=== PATIENT | male | born 1950 | race Caucasian/White ===

== ENCOUNTER 2018-09-23 14:15 | Inpatient (IN) | payer MEDICARE, OTHER ==
[~2018-09-23 14:15] MED LIST: AMIO200T5 PO; ATOR10TA84 PO; BISO5TAB26 PO; BUME1TAB17 PO; LEVO50 PO; MEXI150 PO; OMEP-99 PO; SERT100T12 PO
[2018-09-23 16:03] VITALS: BP 106/68
[2018-09-23] MEDS ORDERED: BISACODYL 10 MG RECTAL RECTAL SUPPOSITORY PR PRN (16:30)
[2018-09-23] MEDS ORDERED: MAGNESIUM HYDROXIDE SUSPENSION 30 ML UDCUP PO PRN (16:30)
[2018-09-23] MEDS ORDERED: ACETAMINOPHEN 325 MG TABLET PO PRN (16:30)
[2018-09-23] MEDS ORDERED: ZOLPIDEM TARTRATE 5 MG TABLET PO PRN (16:30)
[2018-09-23] MEDS ORDERED: HYDROCODONE/ACETAMINOPHEN 5-325 MG TABLET PO PRN (16:30)
[2018-09-23] MEDS ORDERED: ONDANSETRON HCL 4 MG/2 ML VIAL IVP PRN (16:30)
[2018-09-23] MEDS ORDERED: MORPHINE SULFATE 2 MG/ML SYRINGE IVP PRN (16:30)
[2018-09-23] MEDS ORDERED: CefTRIAXone 1 GM/DEXTROSE 50 ML IV SCH (17:00)
[2018-09-23] MEDS ORDERED: SODIUM CHLORIDE 0.9% 250 ML IV ONE (17:04)
[2018-09-23 20:43] LABS: ABG A-A DIFF O2 92.7 mmHg (10-20.0); ABG BASE EXCESS -18.5 mmol/L (-2.0-3.0); ABG CARBOXYHEMOGLOBIN 0.6 % (0.0-1.5); ABG HCO3 11.2 mmol/L (22.0-26.0); ABG METHEMOGLOBIN 0.2 % (0.0-1.5); ABG OXYHEMOGLOBIN 81.5 % (94.0-100.0); ABG PCO2 35 mmHg (35-45); ABG TOTAL HEMOGLOBIN 13.1 G/dL (12.0-18.0); PO2, ARTERIAL BG 65.6 mmHg (79.0-87.0); SOURCE, BLOOD GAS ARTERIAL; TEMPERATURE, FAHRENHEIT, BG 98.2 FAHREN (96.0-98.6)
[2018-09-23] MEDS ORDERED: SODIUM BICARBONATE [ADULT] 8.4% 50 MEQ/50 ML SYRINGE IVP ONE (20:57)
[2018-09-23] MEDS ORDERED: DOPamine HCL/D5W 400 MG/250 ML IV BAG IV ONE (20:57)
[2018-09-23] MEDS ORDERED: DEXTROSE 5%-WATER 250 ML BAG IV ONE (20:57)
[2018-09-23] MEDS ORDERED: DEXTROSE 50%-WATER 25 GM/50 ML SYRINGE IVP ONE (20:57)
[2018-09-23] MEDS ORDERED: EPINEPHrine 1:10,000 [1 MG/10 ML] SYRINGE IVP ONE (20:57)
[2018-09-23] MEDS ORDERED: ATROPINE SULFATE 0.1 MG/ML 10 ML SYRINGE IVP ONE (20:57)
[2018-09-23 21:00] LABS: ABG OXYGEN SATURATION 82.2 % (95.0-98.0); ABG PH 7.112 (7.35-7.450); O2 DEVICE,BLOOD GAS CANNULA (ROOM AIR); SITE, BLOOD GAS RT RADIAL
[2018-09-23] MEDS ORDERED: ATORVASTATIN CALCIUM 10 MG TABLET PO SCH (21:00)
[2018-09-23] MEDS ORDERED: DOCUSATE SODIUM 100 MG CAPSULE PO SCH (21:00)
[2018-09-23 22:34] LABS: GLUCOMETER DEV NAME(LOC) 5N.1; GLUCOSE,POINT OF CARE 47 MG/DL (70-110)
[2018-09-24] MEDS ORDERED: HEPARIN SODIUM,PORCINE 5,000 UNITS/ML VIAL SQ SCH
[2018-09-24] MEDS ORDERED: LEVOTHYROXINE SODIUM 50 MCG TABLET PO SCH (06:30)
[2018-09-24] MEDS ORDERED: BUMETANIDE 0.25 MG/ML 4 ML VIAL IVP SCH (09:00)
[2018-09-24] MEDS ORDERED: PANTOPRAZOLE SODIUM 40 MG DR TABLET PO SCH (09:00)
[2018-09-24] MEDS ORDERED: AMIODARONE HCL 200 MG TABLET PO SCH (09:00)
[2018-09-24] MEDS ORDERED: SERTRALINE HCL 100 MG TABLET PO SCH (09:00)
[2018-09-24] MEDS ORDERED: BISOPROLOL FUMARATE 5 MG TABLET PO SCH (09:00)
== END 2018-09-23 20:58 | disposition expired | DRG 70 ==
LOC: 6N 14:20 → 5N 20:05
PROVIDERS: ADMIT Internal Medicine; ATTEND Internal Medicine
DX: G93.41 Metabolic encephalopathy (principal); I50.23 Acute on chronic systolic (congestive) heart failure; R45.851 Suicidal ideations; N39.0 Urinary tract infection, site not specified; I42.9 Cardiomyopathy, unspecified; I11.0 Hypertensive heart disease with heart failure; I46.9 Cardiac arrest, cause unspecified; E03.9 Hypothyroidism, unspecified; E78.5 Hyperlipidemia, unspecified; F15.90 Other stimulant use, unspecified, uncomplicated; K21.9 Gastro-esophageal reflux disease without esophagitis; F14.90 Cocaine use, unspecified, uncomplicated; Z95.810 Presence of automatic (implantable) cardiac defibrillator; Z87.81 Personal history of (healed) traumatic fracture
CPT/HCPCS: 82805; 92950; G0378; J0171; J0461; J0696; J1265; J3490; J7050; J7060